=== PATIENT | female | born 1980 | race Caucasian/White ===

== ENCOUNTER 2020-02-29 12:52 | Outpatient (CLI) | payer BC, SELFPAY ==
--- NOTE | ~2020-02-29 | MR_ITS ---
EXAMINATION: MR brain/brain stem wo con EXAM DATE: 02/29/2020 14:12 INDICATION: Migraine headaches. TECHNIQUE: Magnetic resonance imaging (MRI) of the brain/brain stem obtained without contrast. Sagitt al T1, axial diffusion, gradient echo (T2*), T1, T2, FLAIR sequences obtained. There is no prior st udy for comparison. FINDINGS: There are no areas of restricted diffusion to suggest acute infarction. There is no acute hemorrhage seen on the T2*, a hemosiderin sensitive sequence. No intraparenchymal brain mass. The ve ntricles are normal in size. There are no extra-axial collections. Flow voids are seen in the cereb ral arteries on the T2-weighted sequences consistent with their expected patency. The orbits are unr emarkable. Soft tissue is unremarkable. IMPRESSION: 1. Unremarkable brain MRI examination. Reviewed, dictated and finalized at location A.
== END 2020-02-29 12:53 | disposition home or self-care (01) ==
PROVIDERS: PCP Family Medicine; Visit Provider Family Medicine
DX: G43.109 Migraine with aura, not intractable, without status migrainosus (principal)
CPT/HCPCS: 70551

== ENCOUNTER 2020-07-30 15:15 | Outpatient (CLI) | payer BC, SELFPAY ==
--- NOTE | 2020-07-30 15:16 | ECG_ITS ---
Measurements Intervals [place] Rate: 91 P: 77 [place]: 121 QRS: 59 QRSD: 95 T: 67 QT: 353 QTc: 435 Interpretive Statements SINUS RHYTHM POSSIBLE LEFT ATRIAL ENLARGEMENT INCOMPLETE RIGHT BUNDLE BRANCH BLOCK BASELINE ARTIFACT- I, III, AVL BORDERLINE ECG Electronically Signed On 07-30-2020 16:33:42 CDT by Donny Rachel D.O.
[2020-07-30 15:44] LABS: Hematocrit 38.4 % (37.0-47.0); Hemoglobin 12.2 g/dL (12.0-15.0)
[2020-07-30 15:56] LABS: Anion Gap 5 mmol/L (8-16); Blood Urea Nitrogen 10 mg/dL (7-17); Carbon Dioxide 31 mmol/L (22-30); Chloride 96 mmol/L (98-107); Estimated Glomerular Filt Rate > 60; Glucose 93 mg/dL (65-105); Potassium 4.1 mmol/L (3.4-5.0); Sodium 132 mmol/L (137-145)
== END 2020-07-30 15:16 | disposition home or self-care (01) ==
LOC: ANHSURGERY 15:16
PROVIDERS: Anesthesiology; PCP Family Medicine; Visit Provider Obstetrics & Gynecology
DX: I10 Essential (primary) hypertension (principal); Z87.42 Personal history of other diseases of the female genital tract; Z79.899 Other long term (current) drug therapy; Z01.812 Encounter for preprocedural laboratory examination
CPT/HCPCS: 36415; 80048; 85014; 85018; 93005

== ENCOUNTER 2020-08-05 01:05 | Outpatient (CLI) | payer BC, SELFPAY ==
[2020-08-05 19:20] LABS: SARS-CoV-2 RNA PCR Negative
== END 2020-08-05 01:06 | disposition home or self-care (01) ==
LOC: ANHCOVIDDT 01:05
PROVIDERS: PCP Family Medicine; Visit Provider Obstetrics & Gynecology
DX: Z01.812 Encounter for preprocedural laboratory examination (principal); Z20.828 Contact with and (suspected) exposure to other viral communicable diseases
CPT/HCPCS: 87635; C9803; U0003

== ENCOUNTER 2020-08-07 01:44 | Day surgery (SDC) | payer BC, SELFPAY ==
[2020-07-28 10:24] VITALS: BMI 19.7
[2020-08-07 10:21] VITALS: BP 124/82; PULSE 84; RESP 18; TEMP 36.6; O2SAT 100
[2020-08-07] MEDS: ACETAMINOPHEN 500 MG TABLET 1000 MG PO (10:35)
[2020-08-07] MEDS: LACTATED RINGERS 1,000 ML 30 ML IV CONT (10:35)
--- NOTE | 2020-08-07 10:36 | WPDANESEPPF ---
Anes - Initial Pre Proc Eval Procedure: Operation Date: 08/07/20 12:00 Proposed Procedures p Hysteroscopy, Dilation And Curettage, [place] Endometrial Ablation - Alessandro Gomez MD Date/Time: 08/07/20 10:36 Surgeon: Alessandro Gomez MD Pre Op Diagnosis: Heavy Bleeding/ Dysmenorrhea Patient Data Age: 40 Gender: F Height: 5 ft 4 in Weight: 53.6 kg Last Vital Signs Temp 36.6 C 08/07/20 10:21 Pulse 84 08/07/20 10:21 Resp 18 08/07/20 10:21 BP 124/82 08/07/20 10:21 Pulse Ox 100 08/07/20 10:21 Allergies Allergy/AdvReac Type Severity Reaction Status Date / Time No Known Allergies Allergy Verified 07/28/20 10:26 Home Medications Medication Instructions Recorded Confirmed Type alprazolam 0.5 mg PO BID 07/28/20 07/28/20 History duloxetine 60 mg PO DAILY 07/28/20 07/28/20 History hydrochlorothiazide 25 mg PO DAILY 07/28/20 07/28/20 History lamotrigine 100 mg PO DAILY 07/28/20 07/28/20 History multivitamin 1 tablet PO DAILY 07/28/20 07/28/20 History trazodone 50 mg PO HS 07/28/20 07/28/20 History Patient hx anesthesia problems: none Family hx anesthesia problems: none PMFSH Past Medical History Medical History Chondromalacia, knee Degenerative joint disease of knee HTN (hypertension) Right knee pain Family History Family History Other Cerebrovascular accident Family history of malignant neoplasm Hypertension Social History Social History Smoking packs per day: 1 Smoking cigarettes per day: 20.0 Years smoked: 8 Smoking pack-years: 8.00 Smoking status: Former smoker Tobacco type: cigarettes Additional smoking assessment comments: QUIT 10 YEARS AGO Alcohol intake: current Drinks per week: 2 Spiritual care concerns: No Anes - Eval Final PreProcedure Day of Procedure 08/07/20 10:36 Patient weight: normal Heart: regular rate and rhythm Lungs: clear to auscultation Airway: Mallampati scale class II Neurological: alert and oriented Last oral intake: >/= 8 hours ASA classification: II Emergent: no Anesthetic plan: proceed Anesthesia type and monitoring: general GIVS and standard monitoring Informed Consent: The patient's anesthetic plan and its attendant risks and benefits were discussed with the patient/family/POA. Questions were solicited and answers provided to the satisfaction of the patient/family/POA.
--- NOTE | 2020-08-07 11:32 | PM.IMHP ---
H&P: HPI History of Present Illness Date/Time: 08/07/20 11:32 Chief complaint: Heavy Bleeding/ Dysmenorrhea Narrative: 40 y/o who has had a tubal ligation for contraception. She has heavy, crampy menses. Ultrasound exam shows an endometrial stripe 1cm thick. There is functional change in the bilateral adnexa. She is interested in surgical management of her problem. Review of Systems Review of Systems: All systems reviewed & are unremarkable except as noted in HPI and below PMFSH Past Medical History Medical History (Updated 08/07/20 @ 11:34 by Alessandro Gomez MD) Chondromalacia, knee Degenerative joint disease of knee HTN (hypertension) Right knee pain Surgical History Surgical History History of tubal ligation Family History Family History Other Cerebrovascular accident Family history of malignant neoplasm Hypertension Social History Social History Smoking packs per day: 1 Smoking cigarettes per day: 20.0 Years smoked: 8 Smoking pack-years: 8.00 Smoking status: Former smoker Tobacco type: cigarettes Additional smoking assessment comments: QUIT 10 YEARS AGO Alcohol intake: current Drinks per week: 2 Spiritual care concerns: No Meds Home Medications and Allergies Home Medications Medication Instructions Recorded Confirmed Type alprazolam 0.5 mg PO BID 07/28/20 07/28/20 History duloxetine 60 mg PO DAILY 07/28/20 07/28/20 History hydrochlorothiazide 25 mg PO DAILY 07/28/20 07/28/20 History lamotrigine 100 mg PO DAILY 07/28/20 07/28/20 History multivitamin 1 tablet PO DAILY 07/28/20 07/28/20 History trazodone 50 mg PO HS 07/28/20 07/28/20 History Allergies Allergy/AdvReac Type Severity Reaction Status Date / Time No Known Allergies Allergy Verified 07/28/20 10:26 Vital Signs Vital Signs - 24 hr 08/07/20 10:21 Temperature 36.6 C Pulse Rate 84 Respiratory Rate 18 Blood Pressure 124/82 Pulse Oximetry 100 Exam Const: Orientation/consciousness: patient oriented x3 Other: Well-developed, well-nourished female in no acute distress. Neck: Thyroid: thyroid normal Lymphatic: no lymphadenopathy noted (in neck, axilla or inguinal nodes) Resp: Effort & Inspection: normal respiratory effort Auscultation: clear to auscultation bilaterally Cardio: Rate: regular rate Rhythm: regular rhythm Heart sounds: S1 normal heart sound present and S2 normal heart sound present GI: Other: ABD: Soft, nontender, nondistended. No guarding or rebound tenderness. No hepatosplenomegaly. : General: Yes no CVA tenderness Other: External genitalia: normal female hair distribution, without lesion. Urethral meatus: no lesion, non prolapsed. Bladder: no mass, nontender Vagina: well-estrogenized, without lesion or discharge. No cystocele or rectocele. Cervix: no lesion or discharge. Uterus: small, anteverted, freely mobile, nontender Adnexa: no mass or tenderness. Anus/perineum: no lesions, nontender Back/Spine/Pelvis: Back: no CVA tenderness Skin: General skin exam: normal color and no rashes or lesions noted Neuro: General: patient oriented x3 Extrem: Other: Extremities: nontender with no edema Psych: Mental Status: mental status grossly normal Affect: normal affect Assessment and Plan Assessment and plan (1) Dysmenorrhea: Code(s): N94.6 - Dysmenorrhea, unspecified Status: Acute (2) Menometrorrhagia: Code(s): N92.1 - Excessive and frequent menstruation with irregular cycle Status: Acute Assessment and Plan: Offered medical vs. surgical management. She prefers the latter. Specifically, she is interested in hysteroscopy, D&C and endometrial ablation. She understands risks of surgery to include risks of anesthesia, risks of pain, infection, bleeding, blood pro
--- NOTE | 2020-08-07 11:36 | WPDHPUPDATE1 ---
History and Physical Update Update Date/Time: 08/07/20 11:36 History and Physical has been reviewed, including an updated exam of the patient. There are NO changes in the patient's condition. Risks, benefits, and alternatives have been discussed and questions answered. Patient agrees to proceed with procedure.
--- NOTE | 2020-08-07 12:26 | PM.PROC ---
Procedure Note - Detailed Date of procedure: 08/07/20 Pre-op diagnosis: Heavy Bleeding/ Dysmenorrhea Menometrorrhagia Dysmenorrhea Post-op diagnosis: same Procedure performed: Hysteroscopy D&C Endometrial ablation Description of procedure: The patient was taken to the operating room where she was prepared and draped in the usual sterile fashion in the dorsal lithotomy position. The bladder was drained with a red rubber catheter. A sterile speculum was placed into the vagina. The anterior lip of the cervix was grasped with single-tooth tenaculum. Ten mL of 1% lidocaine was administered in a paracervical block. The cervix was then gently dilated using Hegar dilators until an 8 mm dilator could be passed. Hysteroscopy was performed using sterile saline as a distention medium. Findings are as noted above. Sharp curettage was then performed, and endometrial curettings were collected on a Telfa pad and passed off to be sent to pathology. Finally, the the Florence device was advanced and endometrial ablation commenced without difficulty. The device was withdrawn and a second look was taken using the hysteroscope. Excellent coverage of the endometrial cavity was noted. The tenaculum was removed. Hemostasis was excellent. Sponge, lap, needle and instrument counts were correct. The patient was awakened and taken to the recovery room in stable condition. I was present and scrubbed through the entire procedure. Implants: None Anesthesia: MAC and local (1% lidocaine) Surgeon: Alessandro Gomez MD Estimated blood loss (mL): 10 Drains: No Packing: No Pathology: yes (Endometrial curettings) Complications: None Condition: stable Disposition: PACU Findings: Thick endometrial tissue. Both tubal ostia seen. Uterus sounded to a depth of 8.5 cm with a cervical length of 3 cm, giving a subtracted uterine cavity length of 5.5 cm.
[2020-08-07 12:28] VITALS: BP 152/82; PULSE 80; RESP 12; O2SAT 100
[2020-08-07 12:58] VITALS: BP 112/73; PULSE 79; RESP 12; O2SAT 100
[2020-08-07 13:20] VITALS: BP 120/72; PULSE 78; RESP 12
== END 2020-08-07 13:30 | disposition home or self-care (01) ==
PROVIDERS: PCP Family Medicine; Visit Provider Obstetrics & Gynecology
PROC: 0U5B8ZZ Destruction of Endometrium, Via Natural or Artificial Opening Endoscopic (ICD-10-PCS; CPT 58563; principal; 2020-08-07 12:00)
DX: N94.6 Dysmenorrhea, unspecified (principal); N92.1 Excessive and frequent menstruation with irregular cycle; Z98.51 Tubal ligation status; I10 Essential (primary) hypertension; E78.5 Hyperlipidemia, unspecified; F41.9 Anxiety disorder, unspecified; G43.909 Migraine, unspecified, not intractable, without status migrainosus; Z79.899 Other long term (current) drug therapy; Z87.891 Personal history of nicotine dependence
CPT/HCPCS: 58563; 87635; 88305; A9270; C9803; J1885; J2250; J2704; J3010; J7030; J7120; U0003

== ENCOUNTER 2021-10-19 16:09 | Outpatient (CLI) | payer OTHER, SELFPAY ==
--- NOTE | ~2021-10-19 | MM_ITS ---
EXAMINATION: MM scrn geraldine implant BI w sarah HISTORY: Screening mammogram TECHNIQUE: Craniocaudal and mediolateral oblique 3-D tomosynthesis images with implant displacement a nd synthetic 2-D images were generated. Craniocaudal and mediolateral oblique views of the breasts wi thout implant displacement were obtained using full field digital mammography. CAD analysis was submi tted and interpreted. COMPARISON: 06/20/2019, 01/09/2018, 01/04/2018 BREAST PARENCHYMAL COMPOSITION: There are scattered areas of fibroglandular density. FINDINGS: There is no evidence of suspicious mass, calcification, or architectural distortion to sugg est malignancy in either breast. There has been no suspicious interval change. IMPRESSION: 1. No mammographic evidence of malignancy. 2. Recommend routine screening mammography in one year. BI-RADS Category 1: Negative Reviewed, dictated and finalized at location A. SE CUP FILLER
== END 2021-10-19 16:10 | disposition home or self-care (01) ==
LOC: ANHIMG 16:12
PROVIDERS: PCP Family Medicine; Visit Provider Obstetrics & Gynecology
DX: Z12.31 Encounter for screening mammogram for malignant neoplasm of breast (principal)
CPT/HCPCS: 77063; 77067

== ENCOUNTER 2023-04-06 08:02 | Outpatient (CLI) | payer BC, SELFPAY ==
--- NOTE | ~2023-04-06 | MM_ITS ---
EXAMINATION: MM scrn geraldine implant BI w sarah HISTORY: Screening mammogram, family history of breast cancer in her mother. TECHNIQUE: Craniocaudal and mediolateral oblique 3-D tomosynthesis images with implant displacement a nd synthetic 2-D images were generated. Craniocaudal and mediolateral oblique views of the breasts wi thout implant displacement were obtained using full field digital mammography. CAD analysis was submi tted and interpreted. COMPARISON: 10/19/2021, 06/20/2019, 01/09/2018, 01/04/2018 BREAST PARENCHYMAL COMPOSITION: There are scattered areas of fibroglandular density. FINDINGS: There is no evidence of suspicious mass, calcification, or architectural distortion to sugg est malignancy in either breast. There has been no suspicious interval change. IMPRESSION: 1. No mammographic evidence of malignancy. 2. Recommend routine screening mammography in one year. BI-RADS Category 1: Negative Reviewed, dictated and finalized at location A.
== END 2023-04-06 08:03 | disposition home or self-care (01) ==
LOC: ANHIMG 08:06
PROVIDERS: PCP Nurse Practitioner; Visit Provider Obstetrics & Gynecology
DX: Z12.31 Encounter for screening mammogram for malignant neoplasm of breast (principal)
CPT/HCPCS: 77063; 77067

== ENCOUNTER 2024-07-05 07:19 | Outpatient (CLI) | payer BC, SELFPAY ==
--- NOTE | ~2024-07-05 | MM_ITS ---
EXAMINATION: MM scrn geraldine implant BI w sarah HISTORY: Screening mammogram TECHNIQUE: Craniocaudal and mediolateral oblique 3-D tomosynthesis images with implant displacement a nd synthetic 2-D images were generated. Craniocaudal and mediolateral oblique views of the breasts wi thout implant displacement were obtained using full field digital mammography. CAD analysis was submi tted and interpreted. COMPARISON: Comparison to multiple prior studies sequentially, with oldest reviewed study dated 04/06. BREAST PARENCHYMAL COMPOSITION: Not dense: There are scattered areas of fibroglandular density. FINDINGS: There is no evidence of suspicious mass, calcification, or architectural distortion to sugg est malignancy in either breast. There has been no suspicious interval change. IMPRESSION: 1. No mammographic evidence of malignancy. 2. Recommend routine screening mammography in one year. BI-RADS Category 1: Negative Reviewed, dictated and finalized at location B.
== END 2024-07-05 07:20 | disposition home or self-care (01) ==
LOC: ANHIMG 07:21
PROVIDERS: PCP Nurse Practitioner; Visit Provider Obstetrics & Gynecology
DX: Z12.31 Encounter for screening mammogram for malignant neoplasm of breast (principal)
CPT/HCPCS: 77063; 77067

== ENCOUNTER 2024-12-16 02:27 | Day surgery (SDC) | payer OTHER, SELFPAY ==
[2024-12-09 12:31] VITALS: BMI 19.7
[2024-12-16 12:00] VITALS: BP 128/79; PULSE 74; RESP 16; TEMP 36.3; O2SAT 100; BMI 20.6
[2024-12-16] MEDS: LACTATED RINGERS 1,000 ML 150 ML IV CONT (12:21)
--- NOTE | 2024-12-16 12:38 | WPDANESEPPF ---
Anes - Initial Pre Proc Eval Procedure: Operation Date: 12/16/24 13:00 Proposed Procedures p Colonoscopy - Howie Vinson MD Date/Time: 12/16/24 12:38 Surgeon: Howie Vinson MD Pre Op Diagnosis: constipation Patient Data Age: 44 Gender: F Height: 1.63 m Weight: 54.6 kg Last Vital Signs Temp 36.3 C L 12/16/24 12:00 Pulse 74 12/16/24 12:00 Resp 16 12/16/24 12:00 BP 128/79 12/16/24 12:00 Pulse Ox 100 12/16/24 12:00 O2 Del Method Room Air 12/16/24 12:00 Allergies Allergy/AdvReac Type Severity Reaction Status Date / Time No Known Allergies Allergy Verified 12/09/24 12:27 Home Medications ?Medication ?Instructions ?Recorded ?Confirmed ?Type alprazolam 0.5 mg tablet 0.25 mg PO TID PRN anxiety 07/28/20 12/09/24 History duloxetine 60 mg capsule,delayed 60 mg PO DAILY 07/28/20 12/09/24 History release hydrochlorothiazide 25 mg tablet 25 mg PO DAILY 07/28/20 12/09/24 History lamotrigine 100 mg tablet 100 mg PO DAILY 07/28/20 12/16/24 History multivitamin 1 tablet PO DAILY 07/28/20 12/16/24 History trazodone 50 mg tablet 50 mg PO HS 07/28/20 12/16/24 History hydrocodone 5 mg-acetaminophen 325 1 - 2 tablet PO Q6H PRN pain #30 08/07/20 12/09/24 Rx mg tablet ([place]) tabs dextroamphetamine-amphetamine 20 20 mg PO BID 12/09/24 12/16/24 History mg tablet (Adderall) sertraline 100 mg tablet 100 mg PO DAILY 12/09/24 12/16/24 History Patient hx anesthesia problems: none Family hx anesthesia problems: none Results Review: All pre-operative results and documents have been reviewed as part of the pre-operative evaluation. [facility] Past Medical History Medical History (Updated 08/07/20 @ 11:34 by Alessandro Gomez MD) Chondromalacia, knee Degenerative joint disease of knee HTN (hypertension) Right knee pain Surgical History Surgical History History of tubal ligation Family History Family History Other Cerebrovascular accident Family history of malignant neoplasm Hypertension Social History Social History Smoking packs per day: 1 Smoking cigarettes per day: 20.0 Years smoked: 8 Smoking pack-years: 8.00 Smoking status: Former smoker Tobacco type: cigarettes Additional smoking assessment comments: QUIT 10 YEARS AGO Alcohol intake: current Drinks per week: 2 Substance use type: does not use Living arrangements: with family Spiritual care concerns: No Anes - Eval Final PreProcedure Day of Procedure 12/16/24 12:38 Patient weight: normal Heart: regular rate and rhythm Lungs: clear to auscultation and normal air movement Airway: Mallampati scale class II Neurological: alert and oriented Last oral intake: >/= 8 hours ASA classification: II Emergent: no Anesthetic plan: proceed Anesthesia type and monitoring: general GIVS and standard monitoring Results Review: All pre-operative results and documents have been reviewed as part of the pre-operative evaluation. Informed Consent: The patient's anesthetic plan and its attendant risks and benefits were discussed with the patient/family/POA. Questions were solicited and answers provided to the satisfaction of the patient/family/POA.
--- NOTE | 2024-12-16 12:52 | PM.IMHP ---
H&P: HPI History of Present Illness Date/Time: 12/16/24 12:52 Chief Complaint: Screening colonoscopy Narrative: This is the patient's first colonoscopy. There are no GI symptoms and there is no family history of colorectal cancer. Review of Systems Review of Systems: All systems reviewed & are unremarkable except as noted in HPI and below PMFSH Past Medical History Medical History (Updated 12/16/24 @ 12:52 by Howie Vinson MD) Chondromalacia, knee Degenerative joint disease of knee HTN (hypertension) Right knee pain Surgical History Surgical History History of tubal ligation Family History Family History Other Cerebrovascular accident Family history of malignant neoplasm Hypertension Social History Social History Smoking packs per day: 1 Smoking cigarettes per day: 20.0 Years smoked: 8 Smoking pack-years: 8.00 Smoking status: Former smoker Tobacco type: cigarettes Additional smoking assessment comments: QUIT 10 YEARS AGO Alcohol intake: current Drinks per week: 2 Substance use type: does not use Living arrangements: with family Spiritual care concerns: No Meds Home Medications and Allergies Home Medications ?Medication ?Instructions ?Recorded ?Confirmed ?Type alprazolam 0.5 mg tablet 0.25 mg PO TID PRN anxiety 07/28/20 12/09/24 History duloxetine 60 mg capsule,delayed 60 mg PO DAILY 07/28/20 12/09/24 History release hydrochlorothiazide 25 mg tablet 25 mg PO DAILY 07/28/20 12/09/24 History lamotrigine 100 mg tablet 100 mg PO DAILY 07/28/20 12/16/24 History multivitamin 1 tablet PO DAILY 07/28/20 12/16/24 History trazodone 50 mg tablet 50 mg PO HS 07/28/20 12/16/24 History hydrocodone 5 mg-acetaminophen 325 1 - 2 tablet PO Q6H PRN pain #30 08/07/20 12/09/24 Rx mg tablet ([place]) tabs dextroamphetamine-amphetamine 20 20 mg PO BID 12/09/24 12/16/24 History mg tablet (Adderall) sertraline 100 mg tablet 100 mg PO DAILY 12/09/24 12/16/24 History Allergies Allergy/AdvReac Type Severity Reaction Status Date / Time No Known Allergies Allergy Verified 12/09/24 12:27 Vital Signs Vital Signs - 24 hr 12/16/24 12:00 Temperature 97.4 F L Pulse Rate 74 Respiratory Rate 16 Blood Pressure 128/79 Pulse Oximetry 100 Oxygen Delivery Room Air Exam Const: General: cooperative and healthy appearing Resp: Effort & Inspection: normal respiratory effort and able to speak in complete sentences Auscultation: clear to auscultation bilaterally Cardio: Rate: regular rate Rhythm: regular rhythm GI: Inspection: normal to inspection GI Palp: No No hepatosplenomegaly present Auscultation: normal bowel sounds Rectal Exam: deferred Skin: General skin exam: normal color Psych: Appearance: grossly normal Mental Status: mental status grossly normal Assessment and Plan Assessment and plan (1) Encounter for screening colonoscopy: Code(s): Z12.11 - Encounter for screening for malignant neoplasm of colon Status: Acute Assessment and Plan: The patient is deemed a good candidate for the procedure. Consent signed. Will proceed.
[2024-12-16 13:15] VITALS: BP 127/76; PULSE 86; RESP 16; O2SAT 100
[2024-12-16 13:25] VITALS: BP 119/79; PULSE 77; RESP 16; O2SAT 100
[2024-12-16 13:35] VITALS: BP 133/89; PULSE 70; RESP 20; O2SAT 99
--- OUTSIDE RECORDS SUMMARY | 2024-12-19 11:16 | XMS_ITS | Clinical Summary ---
Author Organization [facility] Address [address] [place] [id number] Phone Care Team Providers Care Traverse Rod Assembler Name Role Phone Unavailable Primary Care Provider Unavailabl e Social History Tobacco Use Types Packs/Day Years Used Date Smoking Tobacco: Never Assessed Comments Unknown Sex and Gender Information Value Date Recorded Sex Assigned at Not on file Legal Sex Female 4:28 PM CUSTOMER SUPPORT ADVISOR Gender Identity Not on file Sexual Orientation Not on file Plan of Treatment Health Maintenance Due Date Last Done Comments DTAP/TDAP/TD VACCINES (1 - Tdap) 1998 HEPATITIS B VACCINES (1 of 3 - 19+ 3-dose series) 1998 CERVICAL CANCER SCREENING 2009 BREAST CANCER SCREENING 2019 COLORECTAL SCREENING 02/07/2024 Colorectal Cancer Screening 02/07/2024 FIT-DNA Q 3 years 02/07/2024 FIT/FOBT Q 1 year 02/07/2024 Flex Sig/CT Colonography Q 5 years 02/07/2024 INFLUENZA VACCINE (#1) 2024 HPV VACCINES Aged Out No longer eligi ble based on patient's age to complete this topic PNEUMOCOCCAL VACCINE 0-64 YEARS Aged Out No longer eligible based on patient's age to complete this topic Insurance [facility] BLUE ACCESS/TRUE BLUE PPO
--- OUTSIDE RECORDS SUMMARY | 2024-12-19 11:16 | XMS_ITS | Encounter Summary ---
Author Organization [facility] Address [address] [place] [address]. [place] [address] [place] [address] Care Team Providers Care Construction Ironworker Name Role Phone Jumana Estrella TELERADIOLOGIST Primary Care Provider [phone] Encounter Details Date Type Department Care Team (Late st Contact Info) Description 06/19/[address] Message Enc [facility] Family [facility] [address] [place] [address] [facility] 6 month follow up Social History Tobacco Use Types Packs/Day Years Used Date Smoking Tobacco: Never Smokeless Tobacco: Never Alcohol Use Standard Drinks/Week Comments Not Currently 0 (1 standard drink = 0.6 oz pur e alcohol) AUDIT-C Answer Date Recorded Q1: How often do you have a drink containing alc ohol? Never 09/17/2020 Average Number of Drinks Not on file 020 Frequency of Binge Drinking Not on file 08/28 PHQ-2 Answer Date Recorded Patient Health Questionnaire-2 Score 0 12/07/2022 Comments No Sex and Gender Information Value Date Recorded Sex Assigned at Not on file Legal Sex Female 11:49 AM CDT Gender Identity Not on file Sexual Orientation Not on file documented as of this encounter Plan of Treatment Not on file documented as of this encounter Visit Diagnoses Not on filedocumented in this encounter Care Teams Construction Ironworker Relationship Specialty Start Date End Date Jumana Estrella NP [address] [place] [address] PCP - General NURSE PRACTITIONER 11/29/21 documented as of this encounter
--- OUTSIDE RECORDS SUMMARY | 2024-12-19 11:16 | XMS_ITS | Encounter Summary ---
Author Organization [facility] Address [address] [place] [address]. [place] [address] [place] [address] Care Team Providers Care Stereotype Molder Name Role Phone Jumana Estrella REMOTELY PILOTED VEHICLE CONTROLLER Primary Care Provider [phone] Encounter Details Date Type Department Care Team (Late st Contact Info) Description 01/08/2024 [employer] Message [employer] [facility] Family Medicine [facility] [address] [place] [address] [facility] annual Social History Tobacco Use Types Packs/Day Years [...] on filedocumented in this encounter Care Teams Stereotype Molder Relationship Specialty Start Date End Date Jumana Estrella NP [address] [place] [address] PCP - General NURSE PRACTITIONER 11/29/21 documented as of this encounter
--- OUTSIDE RECORDS SUMMARY | 2024-12-19 11:16 | XMS_ITS | Encounter Summary ---
Author Organization [facility] Address [address] [place] [address]. [place] [address] [place] [address] Care Team Providers Care Exterior Work Helper Name Role Phone Jumana Estrella NP Primary Care Provider [phone] Encounter Details Date Type Department Care Team (Late st Contact Info) Description 12/08/2022 [employer] Message Enc [facility] Family Medicine - [place] [address] [place], [place] [id number] Jumana Estrella, RASHIDA [address] [place] [address] Question about test Social History Tobacco Use Types Packs/Day Years [...] on file Sexual Orientation Not on file COVID-19 Exposure Response Date Recorded In the last 10 days, have yo u been in contact with someone who was confirmed or suspected to have Coronavirus/COVID-19? No / Unsure 12/07/2022 12:50 PM MANAGEMENT INSTRUCTOR documented as of this encounter Plan of Treatment Not on file documented as of this encounter Visit Diagnoses Not on filedocumented in this encounter Care Teams Exterior Work Helper Relationship Specialty Start Date End Date Jumana Estrella NP [address] [place] [address] PCP - General NURSE PRACTITIONER 11/29/21 documented as of this encounter
--- OUTSIDE RECORDS SUMMARY | 2024-12-19 11:16 | XMS_ITS | Clinical Summary ---
Author Organization [facility] Address [address] [place] [address]. [place] [address] [place] [address] Care Team Providers Care Linen Checker Name Role Phone Jumana Estrella NP Primary Care Provider [phone] [phone] Allergies No known active allergies Medications fluticasone propionate (FLONASE) 50 MCG/ACT nasal sprayIndications :Upper respiratory tract infection, unspecified type,Nasal congestion 1 spray by Nasal route daily. 15.8 mL 2 Active Additional Information Patient not taking.Reported on 03/19/2024 ALPRAZolam (XANAX) 0.25 MG tablet Take 1 tablet (0.25 mg total) by mouth 2 (two) times daily. 2 Active lamoTRIgine (LAMICTAL) 25 MG tablet Take 2 tablets (50 mg total) by mouth nightly at bedtime. at bedtime 2 Active traZODone (DESYREL) 50 MG tablet Take 1 tablet (50 mg total) by mouth nightly at bedtime. 4 Active amphetamine-dext roamphetamine (ADDERALL) 20 MG tablet Take 1 tablet (20 mg total) by mouth 2 (two) times daily. 4 Active sertraline (ZOLOFT) 100 MG tablet Take 1 tablet (100 mg total) by mouth daily. 4 Active hydroCHLOROthiaz sukhjinder (HYDRODIURIL) 25 MG tabletIndication s:Essential hypertension Take 0.5 tablets (12.5 mg total) by mouth daily. 90 tablet 4 Active Active Problems Problem Noted Date Diagnosed Date Pilonidal cyst 03/19/2024 Abdominal bloating 12/07/2022 Constipation, unspecified constipation type 11/27 Essential hypertension 09/17/2020 Anxiety 09/17/2020 Arthritis of knee, right 09/17/2020 Resolved Problems Problem Noted Date Diagnosed Date Resolved Date Screening for lipoid disorders 12/07/2022 12/07/2022 Encounters Date Type Department Care Team Description 12/16/2024 Scan [facility] Scanned, Doc Med Group Colonoscopy Report (SCAN) 12/16/2024 Telephone [facility] Family Medicine - [place] [address] [facility] [address] [place] [address] Jumana Estrella NP Referral Request from Last 3 Months Immunizations Name Administration Dates Next Due Influenza (Generic) 12/09/2012 Family History Medical History Relation Comments Hypertension Father Stroke Father Hypertension Maternal Grandfather Breast Cancer Mother Lung Cancer Mother Relation Status Comments Father Maternal Grandfather Mother Social History Tobacco Use Types Packs/Day Years Used Date Smoking Tobacco: Never Passive Smoke Exposure: Never Smokeless Tobacco: Never Tobacco Cessation:Counseling Given: No Alcohol Use Standard Drinks/Week Comments Not Currently 0 (1 standard drink = 0.6 oz pur e alcohol) AUDIT-C Answer Date Recorded Q1: How often do you have a drink containing alc ohol? Never 09/17/2020 Average Number of Drinks Not on file 020 Frequency of Binge Drinking Not on file 08/28 PHQ-2 Answer Date Recorded Patient Health Questionnaire-2 Score 0 03/19/2024 Comments No Sex and Gender Information Value Date Recorded Sex Assigned at Not on file Legal Sex Female 11:49 AM CDT Gender Identity Not on file Sexual Orientation Not on file Last Filed Vital Signs Vital Sign Reading Time Taken Comments Blood Pressure 122/66 07/05/2024 8:06 AM CDT Pulse 85 07/05/2024 8:06 AM CDT Temperature 36.5 ??C (97.7 ??F) 07/05/2024 8:06 AM CD T Respiratory Rate 18 07/05/2024 8:06 AM CDT Oxygen Saturation 99% 07/05/2024 8:06 AM CDT Inhaled Oxygen Concentration - - Weight 53.5 kg (118 lb) 07/05/2024 8:06 AM CDT Height 162.6 cm (5' 4 ) 07/05/2024 8:06 AM CDT Body Mass Index 20.25 07/05/2024 8:06 AM CDT Plan of Treatment Health Maintenance Due Date Last Done Comments Cervical Cancer Screening Pa p Smear (Age 30 to 64) Every 3 Years 1979 DTaP, Tdap and Td Vaccines ( 1 - Tdap) 1998 Hepatitis B Vaccines (1 of 3 - 19+ 3-dose series) 1998 COVID-19 Vaccine (1 - 2023-2 5 season) 2024 Influenza Adult (#1) 2024 12/09/2012 Annual Physical 03/19/2025 03/19/2024, 12/07/2022 PHQ-2 (Physician [place]) 03/19/2025 03/19/2024 Mammogram Screening 04/06/2025 04/06/2023 Cervical Cancer Screening Pa p with HPV Testing (Age 30 to 64) Every 5 Years 07/05/2026 07/05/2021 Cervical Cancer Screening wi th HPV 07/05/2026 Colorectal Cancer Screening Colonoscopy (10 Years) 12/16/2034 12/16/2024 Hepatitis C Completed 12/10/2022 HPV Vaccines Aged Out No longer eligi ble based on patient's age to complete this topic Meningococcal B Vaccine Aged Out No l onger eligible based on patient's age to complete this topic Meningococcal Vaccine Aged Out No shellie yvette eligible based on patient's age to complete this topic Pneumococcal Vaccine: Pediatrics (0 to 5 Years) and At-Risk Patients (6 to 64 Years) Aged Out No longer eligible b ased on patient's age to complete this topic RSV Immunizations Under 20 Months Aged Out No longer eligible b ased on patient's age to complete this topic Procedures Procedure Name Priority Date/Time Associated Diagnosis Comments COLONOSCOPY GENERIC (SCAN ORDER) 12/16/2024 MAMMOGRAM GENERIC (SCAN ORDER) 04/06/2023 HEPATITIS C ANTIBODY W/RFX TO HCV RNA Routine 12/10/2022 7:43 AM BOLT MAN Need for hepatitis C screening test OUTSIDE CYTOPATH CERV/VAG INTERPRET (PAP) 07/05/2021 from Last 3 Months or Most Recently Relevant to Health Maintenance Results * COLONOSCOPY GENERIC (SCAN ORDER) (12/16/2024) 12/16/2024 [facility] Scanned SCANNING Final Resu lt * MAMMOGRAM GENERIC (04/06/2023) Anatomical Region Laterality Modality Other 04/06/2023 [facility] Scanned SCANNING Final Resu lt * HEPATITIS C ANTIBODY W/RFX TO HCV RNA ([facility] ONLY) (12/10/2022 7:43 AM BOLT MAN) HEPATITIS C AB NON-REACT ARIANE NON-REACT ARIANE [employer] [facility] SIGNAL TO CUTOFF 0.06 <1.00 [employer] [facility] Comment: HCV antibody was non-reactive. There is no laboratory evidence of HCV infection. In most cases, no further action is required. However, if recent HCV exposure is suspected, a test for HCV RNA (test code 17547) is suggested. For additional information please refer to http://education.CohBar/faq/LGN98y2 (This link is being provided for informational/ educational purposes only.) 12/10/2022 7:43 AM BOLT MAN 12/10/2022 7:43 AM BOLT MAN Narrative [facility] - 12/12/2022 10:00 AM BOLT MAN FASTING:YES FASTING: YES Resulting Agency Comment Performing Organization Information: ?Site ID: [id number] ?Name: [facility] ?Address: [address] [address] ?Director: Alirio Rae D.O., MPH Jumana Estrella NP LABORATORY Final Res ult [facility] [employer] [facility] [address] [address], * PAP SMEAR WITH HPV (07/05/2021) 07/05/2021 [facility] Scanned SCANNING Final Resu lt from Last 3 Months or Most Recently Relevant to Health Maintenance Insurance [facility] Care Teams Linen Checker Relationship Specialty Start Date End Date Jumana Estrella NP [address] [place] [address] PCP - General NURSE PRACTITIONER 11/29/21
--- OUTSIDE RECORDS SUMMARY | 2024-12-19 11:16 | XMS_ITS | Encounter Summary ---
Author Organization [facility] Address [address] [place] [address]. [place] [address] [place] [address] Care Team Providers Care Coil Winder Hand Name Role Phone Jumana Estrella NP Primary Care Provider +1 -[phone] Encounter Details Date Type Department Care Team (Late st Contact Info) Description 06/25/2024 [employer] Message Enc [facility] Medical Group Family Medicine - [place] [address] [facility] [address] [place] [phone] Jumana Estrella, RASHIDA [address] [place] [address] [place] [address] Abdominal pain Social History Tobacco Use Types Packs/Day Years Used Date Smoking Tobacco: Never Passive Smoke Exposure: Never Smokeless Tobacco: Never Alcohol Use Standard [...] on file documented as of this encounter Progress Notes * Lupe Tang MA - 06/25/2024 2:24 PM CDT I spoke with the patient and scheduled her for 06/27/24 * Radha Molina MD - 06/25/2024 1:46 PM CDT I would prefer in person so I can examine her abdomen. * Radha Molina MD - 06/25/2024 11:52 AM CDT I will gladly enter the colonoscopy order again, but I could see her in Jumana's absence if she's having symptoms to evaluate it further. It looks like she requested the referral go to [place]. Please askher where she would like it sent. documented in this encounter Plan of Treatment Not on file documented as of this encounter Visit Diagnoses Not on filedocumented in this encounter Care Teams Coil Winder Hand Relationship Specialty Start Date End Date Jumana Estrella NP [address] [place] [address] PCP - General NURSE PRACTITIONER 11/29/21 documented as of this encounter
--- OUTSIDE RECORDS SUMMARY | 2024-12-19 11:16 | XMS_ITS | Referral Summary ---
Author Organization [facility] Address [address] [address] Phone Care Team Providers Care Light Armored Vehicle Officer Name Role Phone Unavailable Primary Care Provider Unavailabl e Allergies No known active allergies Medications No known medications Active Problems Problem Noted Date Diagnosed Date Anxiety 09/17/2020 Arthritis of knee, right 09/17/2020 Essential hypertension 09/17/2020 Social History Tobacco Use Types Packs/Day Years Used Date Smoking Tobacco: Never Assessed Comments Unknown Sex and Gender Information Value Date Recorded Sex Assigned at Not on file Legal Sex Female 12:53 PM SIMULATION EDUCATOR Gender Identity Not on file Sexual Orientation Not on file Plan of Treatment Not on file Insurance [employer] Member Subscriber Plan / Payer (Ef fective 2021-Present) Name:Edy Carrillo Relation to Subscriber:Self Name:Edy Carrillo Payer ID:[id number] (NAIC) Type:CIGNA HMO/PPO Address: [facility] [address] [place] [address]
--- OUTSIDE RECORDS SUMMARY | 2024-12-19 11:16 | XMS_ITS | Encounter Summary ---
Author Organization [facility] Address [address] [place] [address]. [place] [address] [place] [address] Care Team Providers Care Enterprise Systems Architect Name Role Phone Jumana Estrella NP Primary Care Provider [phone] [phone] Encounter Details Date Type Department Care Team (Late st Contact Info) Description 04/02/2024 [employer] Message Enc [facility] Medical Group Family Medicine - [place] [address] [facility] [address] [place] [address] Jumana Estrella NP [address] [place], [place] [address] Potassium Social History Tobacco Use Types Packs/Day Years [...] on filedocumented in this encounter Care Teams Enterprise Systems Architect Relationship Specialty Start Date End Date Jumana Estrella NP [address] [place], [place] [address] PCP - General NURSE PRACTITIONER 11/29/21 documented as of this encounter
--- OUTSIDE RECORDS SUMMARY | 2024-12-19 11:16 | XMS_ITS | Clinical Summary ---
Author Organization [facility] Address [address] [address] Phone Care Team Providers Care Shearing Machine Operator Name Role Phone Unavailable Primary Care Provider [...] on file Legal Sex Female 12:53 PM RETAIL MANAGEMENT TRAINEE Gender Identity Not on file Sexual Orientation Not on file Obstetrics History Plan of Treatment Not on file Insurance [employer] Member Subscriber Plan / Payer (Ef fective 2021-Present) Name:Edy Carrillo Relation to Subscriber:Self Name:Edy Carrillo Payer ID:[id number] (NA) Type:CIGNA HMO/PPO Address: [facility] [address] [place] [address]
--- OUTSIDE RECORDS SUMMARY | 2024-12-19 11:16 | XMS_ITS | Encounter Summary ---
Author Organization [facility] Address [address] [place] [address]. [place] [address] [place] [address] Care Team Providers Care Toilet Attendant Name Role Phone Jumana Estrella NP Primary Care Provider [phone] [phone] Encounter Details Date Type Department Care Team (Late st Contact Info) Description 09/17/2024 RT [employer] Message Enc [facility] Medical Group Family Medicine - [place] [address] [facility] [address] [place] [address] Jumana Estrella NP [address] [place] [address] New referral for colonoscopy Social History Tobacco Use Types Packs/Day Years [...] as of this encounter Progress Notes * Jumana Estrella NP - 09/17/2024 12:40 PM CDT Can you take a look and place as urgent if pt is needing a new referral. documented in this encounter Plan of Treatment Not on file documented as of this encounter Visit Diagnoses Not on filedocumented in this encounter Care Teams Toilet Attendant Relationship Specialty Start Date End Date Jumana Estrella NP [address] [place] [address] PCP - General NURSE PRACTITIONER 11/29/21 documented as of this encounter
== END 2024-12-16 13:48 | disposition home or self-care (01) ==
PROVIDERS: PCP Nurse Practitioner; Visit Provider Internal Medicine Gastroenterology
PROC: 0DJD8ZZ Inspection of Lower Intestinal Tract, Via Natural or Artificial Opening Endoscopic (ICD-10-PCS; CPT 45378; principal; 2024-12-16 13:00)
DX: Z12.11 Encounter for screening for malignant neoplasm of colon (principal); Z87.891 Personal history of nicotine dependence
CPT/HCPCS: 45378; J2003; J2704; J7120

== ENCOUNTER 2025-07-30 15:42 | Outpatient (CLI) | payer OTHER, SELFPAY ==
--- NOTE | ~2025-07-30 | MM_ITS ---
EXAMINATION: MM scrn geraldine implant BI w sarah HISTORY: Screening TECHNIQUE: Craniocaudal and mediolateral oblique 3-D tomosynthesis images were obtained and synthetic 2-D images were generated. CAD analysis was submitted and interpreted. Implant displacement views were obtained COMPARISON: Mammograms 07/05/2024 and 04/06/2023 BREAST PARENCHYMAL COMPOSITION: There are scattered areas of fibroglandular density. FINDINGS: There is no evidence of suspicious mass, calcification, or architectural distortion in either breast to suggest malignancy. There has been no significant interval change. Grossly stable breast implants. IMPRESSION: 1. No mammographic evidence of malignancy. Recommend routine screening mammography in one year. BI-RADS Category 1: Negative Reviewed, dictated and finalized at location Q. IMPRESSION: 1. No mammographic evidence of malignancy. Recommend routine screening mammogra phy in one year. BI-RADS Category 1: Negative
--- OUTSIDE RECORDS SUMMARY | 2025-07-30 17:03 | XMS_ITS | Encounter Summary ---
Author Organization [facility] Address [address] [place] [address] Care Team Providers Care Delinquent Tax Collector Name Role Phone Jumana Estrella NP Primary Care Provider [phone] [phone] Encounter Details Date Type Department Care Team (Late st Contact Info) Description 06/25/2024 [employer] Message Enc [facility] Medical [facility] Family Medicine - [place] [address] [facility] [address] [place] [address] Jumana Estrella, RASHIDA [address] [place] [address] [place] [address] Abdominal pain Social History Tobacco Use Types [...] Information Value Date Recorded Sex Assigned at Female 04/30/2025 12:24 PM CDT Legal Sex Female 11:49 AM CDT Gender Identity Female 04/30/2025 12:24 PM CDT Sexual Orientation Not on file documented as [...] on filedocumented in this encounter Care Teams Delinquent Tax Collector Relationship Specialty Start Date End Date Jumana Estrella NP [address] [place] [address] PCP - General NURSE PRACTITIONER 11/29/21 documented as of this encounter
--- OUTSIDE RECORDS SUMMARY | 2025-07-30 17:03 | XMS_ITS | Encounter Summary ---
Author Organization [facility] Address [address] [place] [address] Care Team Providers Care Exhibit Electrician Name Role Phone Jumana Estrella NP Primary Care Provider +1 -[phone] Encounter Details Date Type Department Care Team (Late st Contact Info) Description 12/08/2022 [employer] Message Enc [facility] Medical Group Family Medicine - [place] [address] [facility] [address] [place] [address] Jumana Estrella, RASHIDA [address] [place] [address] Question about test Social History Tobacco Use [...] PM CDT Sexual Orientation Not on file COVID-19 Exposure Response Date Recorded In the last 10 days, have yo u been in contact with someone who was confirmed or suspected to have Coronavirus/COVID-19? No / Unsure 12/07/2022 12:50 PM MILLINERY DESIGNER documented as of this encounter Plan of Treatment Not on file documented as of this encounter Visit Diagnoses Not on filedocumented in this encounter Care Teams Exhibit Electrician Relationship Specialty Start Date End Date Jumana Estrella NP [address] [place] [address] PCP - General NURSE PRACTITIONER 11/29/21 documented as of this encounter
--- OUTSIDE RECORDS SUMMARY | 2025-07-30 17:03 | XMS_ITS | Encounter Summary ---
Author Organization [facility] Address [address] [place] [address] Care Team Providers Care Commissions Coordinator Name Role Phone Jumana Estrella NP Primary Care Provider [phone] [phone] Encounter Details Date Type Department Care Team (Late st Contact Info) Description 04/02/2024 [employer] Message Enc [facility] Medical Group Family Medicine - [place] [address] [facility] [address] [place] [phone] Jumana Estrella NP [address] [place] [address] Potassium Social History Tobacco Use Types Packs/Day [...] on filedocumented in this encounter Care Teams Commissions Coordinator Relationship Specialty Start Date End Date Jumana Estrella NP [address] [place] [address] PCP - General NURSE PRACTITIONER 11/29/21 documented as of this encounter
--- OUTSIDE RECORDS SUMMARY | 2025-07-30 17:03 | XMS_ITS | Encounter Summary ---
Author Organization [facility] Address [address] [place] [address] Care Team Providers Care Foundry Helper Name Role Phone Jumana Estrella NP Primary Care Provider [phone] -[phone] Encounter Details Date Type Department Care Team (Late st Contact Info) Description 09/17/2024 [employer] Message Enc [facility] Medical Group Family Medicine - [place] [address] [facility] [address] [place] [address] Jumana Estrella NP [address] [place], [place] [address] New referral for colonoscopy Social History Tobacco [...] on filedocumented in this encounter Care Teams Foundry Helper Relationship Specialty Start Date End Date Jumana Esrtella NP [address] [place] [address] [place] [address] PCP - General NURSE PRACTITIONER 11/29/21 documented as of this encounter
--- OUTSIDE RECORDS SUMMARY | 2025-07-30 17:03 | XMS_ITS | Encounter Summary ---
Author Organization [facility] Address [address] [place] [address] Care Team Providers Care Supervisor Buffing And Pasting Name Role Phone Jumana Estrella EXECUTIVE ADMIN Primary Care Provider +1 -[phone] Encounter Details Date Type Department Care Team (Late st Contact Info) Description 01/08/2024 [employer] Message Enc [facility] Medical Group Family Medicine [facility] [address] [facility] [address] [place] [address] [facility] Provider annual Social History Tobacco Use [...] on filedocumented in this encounter Care Teams Supervisor Buffing And Pasting Relationship Specialty Start Date End Date Jumana Estrella, EXECUTIVE ADMIN [address] [place] [address] PCP - General NURSE PRACTITIONER 11/29/21 documented as of this encounter
--- OUTSIDE RECORDS SUMMARY | 2025-07-30 17:04 | XMS_ITS | Encounter Summary ---
Author Organization [facility] Address [address] [place] [address] Care Team Providers Care Lumber Straightener Name Role Phone Jumana Estrella PEARL DIGGER Primary Care Provider [phone] [phone] Encounter Details Date Type Department Care Team (Late st Contact Info) Description 06/19/2023 [employer] Message Enc [facility] Medical Group Family Medicine [facility] [address] [facility] [address] [place] [address] Alex, [facility] Provider 6 month follow up Social [...] on filedocumented in this encounter Care Teams Lumber Straightener Relationship Specialty Start Date End Date Jumana Estrella, PEARL DIGGER [address] [place] [address] PCP - General NURSE PRACTITIONER 1/3/22 documented as of this encounter
--- OUTSIDE RECORDS SUMMARY | 2025-07-30 17:04 | XMS_ITS | Patient Health Record ---
Author Organization [facility] Address [address] [place] [address] Care Team Providers Care Costume Design Teacher Name Role Phone Adam Mani Unavailable [phone] Reason For Referral No Information Medications Medication SIG (Take, Route, Frequency, Duration) Notes Start Date End Date Status Sertraline HCl 50 MG Tablet Oral 01/14/2021 Active lamoTRIgine 100 MG Tablet Oral 01/14/2021 Active DULoxetine HCl 30 MG Capsule Delayed Release Particles Oral 01/14/2021 Ac tive hydroCHLOROthiazide 25 MG Tablet Oral 01/14/2021 Active ALPRAZolam 0.5 MG Tablet Oral 01/14/2021 Active ALPRAZolam 1 MG Tablet Oral 01/14/2021 Active traZODone HCl 50 MG Tablet Oral 01/14/2021 Active Social History Social History Additional Details Category Social Info Options Details Migrated Social History Migrated Social History Alcohol Intake: None 10/08/2018,Tobacco Years: Former smoker 10/08/2018,Smoking Status: 10 01/14/2021 Plan Of Treatment No Information Insurance Providers Payer Name Payer Address Payer Phone Subscriber Number Group Number Insured Name Patient Relationship to Insured Coverage Start Date Coverage End Date [facility] [address] [place] [address] [id number] MANI DACOSTA Self - patient is the insured Medical (General) History Surgical History Surgery Date(Month/Year) Endometrial ablation ([id number] 020
--- OUTSIDE RECORDS SUMMARY | 2025-07-30 17:04 | XMS_ITS | Clinical Summary ---
Author Organization [facility] Address [address] [place] [phone] Phone Care Team Providers Care Sunday School Missionary Name Role Phone Unavailable Primary Care Provider Unavailabl e Social History Tobacco Use Types Packs/Day Years Used Date Smoking Tobacco: Never Assessed Comments Unknown Sex and Gender Information Value Date Recorded Sex Assigned at Not on file Legal Sex Female 4:28 PM LAYER OUT PLATE GLASS Gender Identity Not on file Sexual Orientation Not on file Plan of Treatment Health Maintenance Due Date Last Done Comments DTAP/TDAP/TD VACCINES (1 - Tdap) 1998 HEPATITIS B VACCINES (1 of 3 - 19+ 3-dose series) 1998 HPV/Cotest (21-29) 02/07/2000 CERVICAL CANCER SCREENING 2009 HPV/Cotest (30-65) 2009 PAP SMEAR 2009 BREAST CANCER SCREENING 2019 COLORECTAL SCREENING 02/07/2024 Colorectal Cancer Screening 02/07/2024 FIT-DNA Q 3 years 02/07/2024 FIT/FOBT Q 1 year 02/07/2024 Flex Sig/CT Colonography Q 5 years 02/07/2024 INFLUENZA VACCINE (#1) 2025 HPV VACCINES Aged Out No longer eligi ble based on patient's age to complete this topic Insurance BCBS BLUE ACCESS/TRUE BLUE PPO [facility]
--- OUTSIDE RECORDS SUMMARY | 2025-07-30 17:04 | XMS_ITS | Clinical Summary ---
Author Organization [facility] Address [address] [place] [address] Care Team Providers Care Water Resources Technical Officer Name Role Phone Jumana Estrella NP Primary Care Provider [phone] Allergies No known active allergies Medications ALPRAZolam (XANAX) 0.25 MG tablet Take 1 tablet (0.25 mg total) by mouth 2 (two) times daily. 2 Active lamoTRIgine (LAMICTAL) 25 MG tablet Take 2 tablets (50 mg total) by mouth nightly at bedtime. at bedtime 2 Active traZODone (DESYREL) 50 MG tablet Take 1 tablet (50 mg total) by mouth nightly at bedtime. 4 Active amphetamine-dextr oamphetamine (ADDERALL) 20 MG tablet Take 1 tablet (20 mg total) by mouth 2 (two) times daily. 4 Active sertraline (ZOLOFT) 100 MG tablet Take 1 tablet (100 mg total) by mouth daily. 4 Active hydroCHLOROthiazi de (HYDRODIURIL) 25 MG tabletIndications :Essential hypertension Take 1 tablet (25 mg total) by mouth daily. 90 tablet 3 5 Active Active Problems Problem Noted Date Diagnosed Date Attention deficit hyperactiv ity disorder (ADHD), unspecified ADHD type 04/30/2025 Overview (04/30/2025): Chronic condition. Follows with psychiatry for med management. Assessment & Plan (04/30/2025 1:18 PM CDT): Chronic condition. Continue to follow with psychiatry as directed. Chronic fatigue 04/30/2025 Assessment & Plan (04/30/2025 1:19 PM CDT): Will obtain lab work and follow-up. Likely multifactorial. Encouraged to get adequate sleep per night and following a healthy well balance diet. Pilonidal cyst 03/19/2024 Essential hypertension 09/17/2020 Overview (04/30/2025): Chronic condition. Well-controlled with hydrochlorothiazide 25 mg daily. She tried cutting her dose down to 12.5 mg daily but her blood pressure was uncontrolled on lower dose. Assessment & Plan (04/30/2025 1:14 PM CDT): Chronic condition. Controlled with hydrochlorothiazide 25 mg daily. No changes needed at this time. Anxiety 09/17/2020 Overview (04/30/2025): Chronic condition. Follows with psychiatry for med management. Assessment & Plan (04/30/2025 1:19 PM CDT): Chronic condition and stable. Continue to follow with psychiatry as directed. Resolved Problems Problem Noted Date Diagnosed Date Resolved Date Vitamin D deficiency 04/30/2025 025 Screening for lipoid disorders 12/07/2022 12/07/2022 Abdominal bloating 12/07/2022 5 Constipation, unspecified constipation type 12/07/2022 04/30/2025 Arthritis of knee, right 09/17/202002/2025 Encounters Date Type Department Care Team Description 07/03/2025 12:20 PM CDT Allied Health/Nurse Visit [facility] [place] [address] [place], [place] [address] Jumana Estrella NP Imm/Inj (Patient presents for Tdap/Adacel vaccine) 07/03/2025 Travel 06/26/2025 Telephone [facility] [place] [address] [place], [place] [address] Jumana Estrella NP Question 05/14/[address] [place] [address] Jumana Estrella NP Refill Request 04/30/2025 12:20 PM CDT Office Visit [facility] [address] [place] [address] Jumana Estrella NP Annual (Here for routine physical and follow up on medications. ) 04/30/2025 Travel from Last 3 Months Immunizations Immunization Administration Dates Next Due Influenza (Generic) 12/09/2012 Tdap (Adacel) 07/03/2025 Family History Medical History Relation Comments Hypertension Father Stroke Father Hypertension Maternal Grandfather Breast Cancer Mother Lung Cancer Mother Relation Status Comments Father Maternal Grandfather Mother Social History Tobacco Use Types Packs/Day Years Used Date Smoking Tobacco: Never Passive Smoke Exposure: Never Smokeless Tobacco: Never Tobacco Cessation:Counseling Given: Not Answered Alcohol Use Standard Drinks/Week Comments Not Currently 0 (1 standard drink = 0.6 oz pur e alcohol) AUDIT-C Answer Date Recorded Q1: How often do you have a drink containing alc ohol? Never 09/17/2020 Average Number of Drinks Not on file 020 Frequency of Binge Drinking Not on file 08/28 PHQ-2 Answer Date Recorded Patient Health Questionnaire-2 Score 0 04/30/2025 Comments No Sex and Gender Information Value Date Recorded Sex Assigned at Female 04/30/2025 12:24 PM CDT Legal Sex Female 11:49 AM CDT Gender Identity Female 04/30/2025 12:24 PM CDT Sexual Orientation Not on file Last Filed Vital Signs Vital Sign Reading Time Taken Comments Blood Pressure 114/84 04/30/2025 12:27 PM CDT Pulse 71 04/30/2025 12:27 PM CDT Temperature 36.4 C (97.6 F) 04/30/2025 12:27 PM CDT Respiratory Rate 16 04/30/2025 12:27 PM CDT Oxygen Saturation 99% 04/30/2025 12:27 PM CDT Inhaled Oxygen Concentration - - Weight 54 kg (119 lb) 04/30/2025 12:27 PM CDT Height 162.6 cm (5' 4) 04/30/2025 12:27 PM CDT Body Mass Index 20.43 04/30/2025 12:27 PM CDT Plan of Treatment Health Maintenance Due Date Last Done Comments Cervical Cancer Screening Pa p Smear (Age 30 to 64) Every 3 Years 1979 Hepatitis B Vaccines (1 of 3 - 19+ 3-dose series) 1998 COVID-19 Vaccine (2023-2 5 season) 2024 Mammogram Screening 04/06/2025 04/06/2023 Annual Physical 04/30/2026 04/30/2025, 03/19/2024, 12/07/2022 Cervical Cancer Screening Pa p with HPV Testing (Age 30 to 64) Every 5 Years 07/05/2026 07/05/2021 Cervical Cancer Screening wi th HPV 07/05/2026 Colorectal Cancer Screening Colonoscopy (10 Years) 12/16/2034 12/16/2024 DTaP, Tdap and Td Vaccines ( 2 - Td or Tdap) 07/03/2035 07/03/2025 Hepatitis C Completed 12/10/2022 PHQ-2 (Physician Sycuan) Completed 04/30/2025 Meningococcal B Vaccine Aged Out No l onger eligible based on patient's age to complete this topic Meningococcal Vaccine Aged Out No shellie yvette eligible based on patient's age to complete this topic Pneumococcal Vaccine: Pediatrics (0 to 5 Years) and At-Risk Patients (6 to 49 Years) Aged Out No longer eligible b ased on patient's age to complete this topic RSV Immunizations Under 20 Months Aged Out No longer eligible b ased on patient's age to complete this topic Procedures Procedure Name Priority Date/Time Associated Diagnosis Comments COLONOSCOPY GENERIC (SCAN ORDER) 12/16/2024 MAMMOGRAM GENERIC (SCAN ORDER) 04/06/2023 HEPATITIS C ANTIBODY W/RFX TO HCV RNA Routine 12/10/2022 7:43 AM SUPERVISOR OFFSET PLATE PREPARATION Need for hepatitis C screening test OUTSIDE CYTOPATH CERV/VAG INTERPRET (PAP) 07/05/2021 from Last 3 Months or Most Recently Relevant to Health Maintenance Results * COLONOSCOPY GENERIC (SCAN ORDER) (12/16/2024) 12/16/2024 [employer] [facility] Scanned SCANNING Final Resu lt * MAMMOGRAM GENERIC (04/06/2023) Anatomical Region Laterality Modality Other 04/06/2023 [employer] [facility] Scanned SCANNING Final Resu lt * HEPATITIS C ANTIBODY W/RFX TO HCV RNA ([facility] ONLY) (12/10/2022 7:43 AM SUPERVISOR OFFSET PLATE PREPARATION) HEPATITIS C AB NON-REACT ARIANE NON-REACT ARIANE [employer] [facility] SIGNAL TO CUTOFF 0.06 <1.00 [employer] [facility] Comment: HCV antibody was non-reactive. There is no laboratory evidence of HCV infection. In most cases, no further action is required. However, if recent HCV exposure is suspected, a test for HCV RNA (test code 29085) is suggested. For additional information please refer to http://education.Gema/faq/IIW74x5 (This link is being provided for informational/ educational purposes only.) 12/10/2022 7:43 AM SUPERVISOR [employer]ATE PREPARATION 12/10/2022 7:43 AM SUPERVISOR [employer]ATE PREPARATION Narrative EDGARDO HARRIS - 12/12/2022 10:00 AM SUPERVISOR OFF[employer] PLATE PREPARATION FASTING:YES FASTING: YES Resulting Agency Comment Performing Organization Information: Site ID: [id number] Name: [employer] [place] Address: [address] [address] Director: Alirio Rae D.O., MPH Jumana Estrella RETAIL CUSTOMER SERVICE SPECIALIST LABORATORY Final Res ult [facility] [employer] [facility] [id number] [id number], [place] * PAP SMEAR WITH HPV (07/05/2021) 07/05/2021 [employer] [facility] Scanned SCANNING Final Resu lt from Last 3 Months or Most Recently Relevant to Health Maintenance Insurance [facility] [place] [address] Care Teams Water Resources Technical Officer Relationship Specialty Start Date End Date Jumana Estrella NP [address] [place] [id number] PCP - General NURSE PRACTITIONER 11/29/21
--- OUTSIDE RECORDS SUMMARY | 2025-07-30 17:04 | XMS_ITS | Clinical Summary ---
Author Organization [facility] Address [address] [address] Phone Care Team Providers Care Laborer Hoisting Name Role Phone Unavailable Primary Care Provider [...] on file Legal Sex Female 12:53 PM BULK GAS SPECIALIST Gender Identity Not on file Sexual Orientation Not on file Obstetrics History Plan of Treatment Not on file Insurance [employer] Member Subscriber Plan / Payer (Ef fective 2021-Present) Name:Edy Carrillo Relation to Subscriber:Self Name:Edy Carrillo Payer ID:[id number] (NA) Type:[employer] HMO/PPO Address: [facility] [address] [address]
== END 2025-07-30 15:43 | disposition home or self-care (01) ==
LOC: ANHFOHIMG 15:53
PROVIDERS: PCP Nurse Practitioner; Visit Provider Obstetrics & Gynecology
DX: Z12.31 Encounter for screening mammogram for malignant neoplasm of breast (principal)
CPT/HCPCS: 77063; 77067